=== PATIENT | male | born 1945 ===

== ENCOUNTER 2018-07-09 07:36 | Day surgery (SDC) | payer MEDICARE, MEDICAID ==
[2018-07-07 08:25] VITALS: BMI 29.0
[2018-07-09] MEDS ORDERED: Bupivacaine 0.25% 20 ML INJ IJ ONE (13:35)
[2018-07-09] MEDS ORDERED: Propofol 10 mg/ml Inj (20 ML) ONE (14:00)
[2018-07-09] MEDS: ceFAZolin 1 gm FROZEN Premix 2 GM/100 ML ML IVPB ONE ×2 (14:00→14:30)
[2018-07-09] MEDS ORDERED: Succinylcholine Chloride 20 mg/ml Syr (5 ml) IV ONE (14:01)
[2018-07-09] MEDS ORDERED: ePHEDrine 50 mg/ml Inj ONE (14:28)
[2018-07-09] MEDS ORDERED: Oxycodone/Acetaminophen 5/325 mg Tab PO PRN (16:06)
[2018-07-09] MEDS ORDERED: Lactated Ringer's 500 ML IV ONE (16:30)
[2018-07-09 17:58] VITALS: BP 154/82; PULSE 64; RESP 18; TEMP 98; O2SAT 100
--- NOTE | 2018-08-11 17:23 | OP ---
PROCEDURE DATE: 07/09/2018 PREOPERATIVE DIAGNOSIS: Soft tissue tumors of neck/back and abdomen. POSTOPERATIVE DIAGNOSIS: Soft tissue tumors of neck/back and abdomen. PROCEDURE: Wide and deep excision 5 cm soft tissue tumors of neck/back and lower abdomen with advancement flap closure of both. SURGEON: Lobito Coreas MD. ANESTHESIA: General. ESTIMATED BLOOD LOSS: 50 mL. POSTOPERATIVE CONDITION: Stable. INDICATIONS FOR SURGERY: This is a 72-year-old male with enlarging soft tissue masses of the back of his neck and upper back area along with a large one in his right lower quadrant of his abdomen. He now will undergo wide and deep excision of above. DESCRIPTION OF PROCEDURE: The patient was taken to the operating room, general anesthesia was administered, placed in a prone position with the neck flexed. A generous elliptical incision was made surrounding the mass. Tissue flaps were raised superiorly and inferiorly. The mass was completely excised into the muscle layer. Bleeding was controlled using the Bovie. Larger blood vessels were repaired, smaller ones were ligated. The wounds were irrigated with saline. Generous tissue flaps were raised superiorly and inferiorly. Counter incisions were made, and a 32 cm2 advancement flap closure was performed, multiple layers of Monocryl, subcuticular Monocryl, and skin clips. The wounds were dressed thoroughly and the patient was placed in supine position. The above was repeated on a soft tissue mass of the abdomen. The patient tolerated the procedure well, returned to recovery room in stable condition. Lobito Coreas MD
== END 2018-07-09 18:02 | disposition home or self-care (01) ==
LOC: C.SDS 07:36
PROVIDERS: ATTEND Surgery
DX: D17.1 Benign lipomatous neoplasm of skin and subcutaneous tissue of trunk (principal)
CPT/HCPCS: 14000; 82948; 88304; J0690; J2270; J2704; J3010; J7120

== ENCOUNTER 2019-02-08 11:08 | Emergency (ER) | payer MEDICARE, MEDICAID ==
[2019-02-08 11:08] VITALS: BMI 29.0
[2019-02-08 11:16] VITALS: RESP 18; O2SAT 98
--- NOTE | 2019-02-08 12:07 | C.PDOC ---
History Of Present Illness 73 y.o. male [facility]. Denies pain, changes in vision, discharge, trauma, or any other associated symptoms. Time Seen by Provider: 02/08/19 11:44 Chief Complaint (Nursing): Eye Problem History Per: Patient History/Exam Limitations: no limitations Onset/Duration Of Symptoms: Days (1-2 days) Current Symptoms Are (Timing): Still Present Injury To Eye?: No Wears Contact Lens?: No Associated Symptoms: denies: Pain, Decreased Vision, Discharge From Eye Recent travel outside of the [place]: No Past Medical History Reviewed: Historical Data, Nursing Documentation, Vital Signs Vital Signs: Last Vital Signs Temp 98.2 F 02/08/19 11:14 Pulse 90 02/08/19 11:14 Resp 18 02/08/19 11:14 BP 134/76 02/08/19 11:14 Pulse Ox 98 02/08/19 11:14 Primary Care Provider: Ravi Gan - Medical History PMH: Anxiety, Asthma, Diabetes, Gastritis, Gall Bladder Disease, HIV, HTN, Hypercholesterolemia, Chronic Kidney Disease Surgical History: Cholecystectomy, Coronary Stent (X2) Denies: Pacemaker - [facility] Procedures COLONOSCOPY (11/18/13) CORONAR ARTERIOGR-2 CATH (07/26/14) CORONARY ARTERY STENT INSERTION [id number] (06/22/13) INJECT/INFUSE PLATELET INHIBITOR (06/22/13) INSERTION OF ONE VASCULAR STENT (06/22/13) LEFT HEART CARDIAC CATH (07/26/14) LT HEART ANGIOCARDIOGRAM (07/26/14) PERCUTANEOUS TRANSLUMINAL CORONARY ANGIOPLASTY [PTCA] (06/22/13) PROCEDURE ON SINGLE VESSEL (06/22/13) Family History: States: Unknown Family Hx - Social History Hx Tobacco Use: Yes Hx Alcohol Use: No Hx Substance Use: No - Immunization History Hx Tetanus Toxoid Vaccination: No Hx Influenza Vaccination: No Hx Pneumococcal Vaccination: No Review Of Systems Eyes: Positive for: Redness. Negative for: Pain, Vision Change, Other (discharge or eye trauma. ) Physical Exam - Physical Exam Appears: Non-toxic, No Acute Distress Skin: Warm, Dry Head: Atraumatic, Normacephalic Eye(s): bilateral: PERRL, EOMI, right: Normal Inspection, left: Other (subconjunctival hemorrhage noted distal iris ) Ear(s): Bilateral: Normal Nose: Normal Oral Mucosa: Moist Throat: Normal, No Erythema, No Exudate Neurological/Psych: Oriented x3, Normal Speech, Normal Cognition ED Course And Treatment O2 Sat by Pulse Oximetry: 98 (RA) Pulse Ox Interpretation: Normal Medical Decision Making Medical Decision Making: Progress/Update: Pt stable for discharge home. Advised to follow up with ENT within 2-3 days or return to the ED if symptoms worsen. Disposition Counseled Patient/Family Regarding: Diagnosis, Need For Followup - Disposition Referrals: Hua Heard MD [Staff Provider] - Disposition: HOME/ ROUTINE Disposition Time: 12:05 Condition: GOOD Additional Instructions: La un seguimiento con harris oculista o con el Dr. Heard la prxima semana. Follow up with your eye doctor or Dr Heard next week. Instructions: Subconjunctival Hemorrhage Forms: Gen Discharge Inst English, [facility] (English) Print Language: MARSHALLESE - Clinical Impression Clinical Impression: Subconjunctival hemorrhage of left eye - PA / COMPOSITION MOLDER / Resident Statement MD/DO has reviewed & agrees with the documentation as recorded. - Scribe Statement The provider has reviewed the documentation as recorded by the Scribe (An Falcon) All medical record entries made by the Scribe were at my direction and personally dictated by me. I have reviewed the chart and agree that the record accurately reflects my personal performance of the history, physical exam, medical decision making, and the department course for this patient. I have also personally directed, reviewed, and agree with the discharge instructions and disposition.
[2019-02-08 12:25] VITALS: BP 131/76; PULSE 87; TEMP 98.7
== END 2019-02-08 12:25 | disposition home or self-care (01) ==
LOC: C.ER 11:08
DX: H11.32 Conjunctival hemorrhage, left eye (principal); E78.00 Pure hypercholesterolemia, unspecified; E11.9 Type 2 diabetes mellitus without complications; I12.9 Hypertensive chronic kidney disease with stage 1 through stage 4 chronic kidney disease, or unspecified chronic kidney disease; N18.9 Chronic kidney disease, unspecified; Z72.0 Tobacco use